=== PATIENT | male | born 1995 | race Caucasian/White ===

== ENCOUNTER 2017-12-10 | Emergency (ER) | payer OTHER | END 2017-12-10 15:01 | disposition home or self-care (01) | DX: J93.81 Chronic pneumothorax (principal) ==

== ENCOUNTER 2017-12-11 | Emergency (ER) | payer OTHER | END 2017-12-11 12:32 | disposition home or self-care (01) | PROC: 0W9B00Z Drainage of Left Pleural Cavity with Drainage Device, Open Approach (ICD-10-PCS; principal; 2017-12-11) | DX: J93.83 Other pneumothorax (principal) ==

== ENCOUNTER → 2017-12-16 | Outpatient (CLI) | payer OTHER | LOC: FIMAGING 11:23 | PROVIDERS: ATTEND Surgery | DX: J93.11 Primary spontaneous pneumothorax (principal) ==

== ENCOUNTER 2018-03-10 07:11 | Inpatient (IN) | payer OTHER ==
[2018-03-10] MEDS ORDERED: LR 1,000 ML IV ONE (07:43)
--- NOTE | 2018-03-10 08:11 | PDANEPAE ---
ANE Past Medical History - Cardiovascular History Hx Hypertension: No Hx Arrhythmias: No Hx Chest Pain: No Hx Coronary Artery / Peripheral Vascular Disease: No Hx CHF / Valvular Disease: No Hx Palpitations: No - Pulmonary History Hx COPD: No Hx Asthma/Reactive Airway Disease: No Hx Recent Upper Respiratory Infection: No Hx Oxygen in Use at Home: No Hx Sleep Apnea: No Sleep Apnea Screening Result - Last Documented: Negative Pulmonary History Comment: PNEUMOTHORAX SPONTANEOUS L LUNG X2 - Neurologic History Hx Cerebrovascular Accident: No Hx Seizures: No Hx Dementia: No - Endocrine History Hx Diabetes: No - Renal History Hx Renal Disorders: No - Liver History Hx Hepatic Disorders: No - Neurological & Psychiatric Hx Hx Neurological and Psychiatric Disorders: No - Cancer History Hx Cancer: No - Congenital Disorder History Hx Congenital Disorders: No - GI History Hx Gastrointestinal Disorders: No - Other Health History Other Health History: NEG - Chronic Pain History Chronic Pain: No - Surgical History Prior Surgeries: KNEE SCOPES L X2. CHEST TUBE X1 ANE Review of Systems Review of Systems: - Exercise capacity METS (RN): 4 METS ANE Patient History - Allergies Allergies/Adverse Reactions: No Known Allergies Allergy (Verified 03/10/18 08:23) - NPO status NPO Since - Liquids (Date): 03/09/18 NPO Since - Liquids (Time): 23:30 NPO Since - Solids (Date): 03/09/18 NPO Since - Solids (Time): 19:30 - Smoking Hx Smoking Status: Never smoked - Family Anes Hx Family Hx Anesthesia Complications: NEG ANE Labs/Vital Signs - Vital Signs Blood Pressure: 128/75 Heart Rate: 71 Respiratory Rate: 14 O2 Sat (%): 97 Height: 187.96 cm Weight: 74.843 kg
[2018-03-10] MEDS ORDERED: fentaNYL 100 MCG/2 ML INJ ONE ×3 (08:35→10:33)
[2018-03-10] MEDS ORDERED: MIDAZOLAM 2 MG/2 ML VIAL ONE (08:35)
[2018-03-10] MEDS ORDERED: BUPIVACAINE/EPI 0.5% 30 ML SDV ONE (08:44)
[2018-03-10] MEDS ORDERED: TALC 3 GM INTRAPLEURAL VIAL ONE (08:46)
--- NOTE | 2018-03-10 08:46 | PDHPUP ---
History & Physical Update H&P update statement: This history and physical update is based on an assessment of the patient which was completed after admission or registration (within 24 hours), but prior to the surgery/procedure. H&P update: H&P reviewed & patient examined, no change in patient's condition since H&P completed
[2018-03-10] MEDS ORDERED: PHENYLEPHRINE HCL 100 MCG/ML SYR ONE ×2 (09:33→10:06)
[2018-03-10] MEDS ORDERED: PHENYLEPHRINE HCL 100 MCG/ML SYR IVP PRN (09:36)
[2018-03-10] MEDS ORDERED: METOCLOPRAMIDE 10 MG/2 ML VIAL IVP PRN ×2 (09:36→10:32)
[2018-03-10] MEDS ORDERED: MEPERIDINE 25 MG/0.5 ML AMP IVP PRN (09:36)
[2018-03-10] MEDS ORDERED: LR 500 ML IV PRN (09:36)
[2018-03-10] MEDS ORDERED: ONDANSETRON 4 MG/2 ML VIAL IVP PRN ×2 (09:36→10:32)
[2018-03-10] MEDS ORDERED: NALOXONE HCL 0.4 MG/ML INJ IVP PRN (09:36)
--- NOTE | 2018-03-10 09:36 | PDANEPAE ---
ANE Past Medical History - Cardiovascular History Hx Hypertension: No Hx Arrhythmias: No Hx Chest Pain: No Hx Coronary Artery / Peripheral Vascular Disease: No Hx CHF / Valvular Disease: No Hx Palpitations: No - Pulmonary History Hx COPD: No Hx Asthma/Reactive Airway Disease: No Hx Recent Upper Respiratory Infection: No Hx Oxygen in Use at Home: No Hx Sleep Apnea: No Sleep Apnea Screening Result - Last Documented: Negative Pulmonary History Comment: PNEUMOTHORAX SPONTANEOUS L LUNG X2 - Neurologic History Hx Cerebrovascular Accident: No Hx Seizures: No Hx Dementia: No - Endocrine History Hx Diabetes: No - Renal History Hx Renal Disorders: No - Liver History Hx Hepatic Disorders: No - Neurological & Psychiatric Hx Hx Neurological and Psychiatric Disorders: No - Cancer History Hx Cancer: No - Congenital Disorder History Hx Congenital Disorders: No - GI History Hx Gastrointestinal Disorders: No - Other Health History Other Health History: NEG - Chronic Pain History Chronic Pain: No - Surgical History Prior Surgeries: KNEE SCOPES L X2. CHEST TUBE X1 ANE Review of Systems Review of Systems: - Exercise capacity METS (RN): 4 METS ANE Patient History - Allergies Allergies/Adverse Reactions: No Known Allergies Allergy (Verified 03/10/18 08:23) - Home Medications Home Medications: Ibuprofen [Motrin (*)] 200 mg PO DAILY PRN 03/02/18 [Last Taken Unknown] - NPO status NPO Since - Liquids (Date): 03/09/18 NPO Since - Liquids (Time): 23:30 NPO Since - Solids (Date): 03/09/18 NPO Since - Solids (Time): 19:30 - Smoking Hx Smoking Status: Never smoked - Family Anes Hx Family Hx Anesthesia Complications: NEG ANE Labs/Vital Signs - Vital Signs Blood Pressure: 128/75 Heart Rate: 71 Respiratory Rate: 14 O2 Sat (%): 97 Height: 187.96 cm Weight: 74.843 kg ANE Physical Exam - Airway Neck exam: FROM Mallampati Score: Class 1 Mouth exam: normal dental/mouth exam - Pulmonary Pulmonary: no respiratory distress - Cardiovascular Cardiovascular: regular rate and rhythym - ASA Status ASA Status: II ANE Anesthesia Plan Anesthesia Plan: general endotracheal anesthesia
[2018-03-10] MEDS ORDERED: KETOROLAC 30 MG/1 ML SDV ONE (10:06)
[2018-03-10] MEDS ORDERED: SUGAMMADEX SODIUM 200 MG/2 ML VIAL IVP ONE (10:06)
--- NOTE | 2018-03-10 10:31 | POSTOPPROG ---
Post Op Note Date of Operation: 03/10/18 Surgeon: Jonny Pantoja [employer] Professor: Kathy Fernandes PA-C Anesthesia: GET(General Endotracheal) Pre-op Diagnosis: Left pneumothorax Post-op Diagnosis: Left pneumothorax Procedure: VATS left lung bleb resection and pleurodesis Findings: left apical blebs Inf/Abcess present in the surg proc area at time of surgery?: No EBL: Minimal Complications: no immediate Specimen(s): left upper lobe lung biopsy
[2018-03-10] MEDS ORDERED: ZOLPIDEM TARTRATE 5 MG TAB PO PRN (10:32)
[2018-03-10] MEDS ORDERED: HYDROmorphONE/DILAUDID 1 MG/ML INJ IVP PRN (10:32)
[2018-03-10] MEDS ORDERED: HYDROmorphONE/DILAUDID 2 MG/ML INJ ONE (10:33)
[2018-03-10] MEDS: HYDROmorphONE/DILAUDID 2 MG/ML INJ IVP PRN ×4 (10:35→11:05)
[2018-03-10] MEDS: fentaNYL 100 MCG/2 ML INJ IVP PRN ×2 (10:35→10:42)
[2018-03-10] MEDS ORDERED: HYDROCODONE/APAP 5/325 TAB ONE (11:15)
[2018-03-10] MEDS: HYDROCODONE/APAP 5/325 TAB PO PRN ×2 (11:16→14:26)
--- NOTE | 2018-03-10 11:45 | POSTANESTH ---
Post Anesthetic Evaluation Cardiovascular Status: Normal, Stable Respiratory Status: Normal, Stable Level of Consciousness/Mental Status: Can Participate in Eval Pain Control: Adequate, Prn Tx Ordered Nausea/Vomiting Control: Adequate, Prn Tx Ordered Complications Possibly Related to Anesthesia: None Noted
[2018-03-10] MEDS: KETOROLAC 15 MG/1 ML SDV IVP SCH ×2 (12:19→18:03)
--- NOTE | 2018-03-10 13:38 | GOP ---
DATE OF OPERATION: 02/28/2018 SURGEON: Jonny Pantoja MD [employer] [employer] APPLICATOR: Kathy Fernandes PA-C. ANESTHESIA: General. ANESTHESIOLOGIST: Garrison Cerda MD. PREOPERATIVE DIAGNOSIS: Recurrent spontaneous pneumothorax. POSTOPERATIVE DIAGNOSIS: Recurrent spontaneous pneumothorax. PROCEDURE PERFORMED: 1. Left video-assisted thorascopic apical lung resection with talc and mechanical pleurodesis. 2. Multilevel intercostal nerve block. FINDINGS: Isolated left upper lobe apical bleb. INDICATIONS: 22-year-old male with a history of recurrent spontaneous left pneumothorax. He is undergoing a thoracoscopy at this time with bleb resection. Risks and benefits were explained of bleeding, infection, open conversion, recurrence. All questions were answered. He desires to proceed. A surgical training specialist is standard and necessary and customary for the safe performance of this. DESCRIPTION OF PROCEDURE: General anesthesia was induced via double-lumen endotracheal tube. The patient was placed in a right lateral decubitus position being careful to pad all pressure points. Three thoracoscopic ports were inserted in the left chest and the lung was deflated. An obvious section of bleb formation was noted within the apical aspect of the left upper lobe. The remaining upper lobe as well as lower and lingular segments appeared normal. The upper lobe was grasped with a clamp and a portion of the upper lobe excised using endoscopic YOBANY stapler containing the obvious blebs. The specimen was brought through the lower most trocar site intact. The chest was abraded with a Bovie scratch pad. Talc was insufflated under direct visualization across all parietal and pleural surfaces. A 24-Egyptian chest tube was placed through the lower-most trocar site. The lung was re-expanded under direct visualization. The wounds were closed in layers with absorbable suture followed by Dermabond. A multilevel intercostal nerve block was placed along the spine with 0.25% Marcaine with epinephrine. The patient was extubated in the operating room and taken to recovery uneventfully. /[id number]/MODL MTDD
--- NOTE | 2018-03-10 14:54 | PDMN ---
Medical Necessity Medical necessity: Pt meets inpt criteria per MD order and [facility] S-[id number], Thoracotomy with Biopsy or Miscellaneous Procedures by Video-Assisted Thoracic Surgery, Medicare inpt only list. 22 y/o w/recurrent spontaneous pneumothorax s/ p VATS left lung bleb resection and pleurodesis.
[2018-03-10] MEDS: ACETAMINOPHEN 325 MG TAB PO PRN (22:09)
[2018-03-11] MEDS: KETOROLAC 15 MG/1 ML SDV IVP SCH ×5 (00:39→23:25)
[2018-03-11] MEDS: ACETAMINOPHEN 325 MG TAB PO PRN ×4 (06:09→20:26)
--- NOTE | 2018-03-11 09:02 | SOAPPROG ---
SOAP Progress Note Assessment/Plan: Assessment:no overnight events. min pain. avss. comfortable. lungs clear. heart reg. chest tube dynamic - very small air leak. cxr -ptx. pod#1 s/p l vats - will keep in hospital overnight - hopeful tube removal tomorrow. can be discharged tomorrow with heimlich valve if not ready yet. Plan: 03/11/18 09:00 Objective: Vital Signs Temp Pulse Resp BP Pulse Ox 36.9 C 64 16 108/57 L 94 03/11/18 07:35 03/11/18 07:35 03/11/18 07:35 03/11/18 07:35 03/11/18 07:35 03/10/18 03/11/18 03/12/18 05:59 05:59 05:59 Intake Total 2520 Output Total 500 Balance 2019 ICD10 Worksheet Patient Problems: Problems Problem Status Onset Pneumothorax Acute - ICD10 Problem Qualifiers (1) Pneumothorax
--- NOTE | 2018-03-11 15:50 | ASMTCMCOM ---
CM Note CM Note Notes: Reviewed chart. Pt admitted for a spontaneous pneumothorax. No remarkable history. CT in place. Per MD notes, CT to likely be removed on Tuesday03/12/18. Pt's parents at bedside. Anticipate pt will likely discharge home with family support when medically stable. CM will continue to follow for any potential needs. Discharge Plan: Home independently Date Signed: 03/11/2018 03:48 PM Electronically Signed By:Debi Andres RN
[2018-03-12] MEDS: KETOROLAC 15 MG/1 ML SDV IVP SCH (05:19)
[2018-03-12] MEDS: ACETAMINOPHEN 325 MG TAB PO PRN (05:53)
--- NOTE | 2018-03-12 09:52 | SOAPPROG ---
SOAP Progress Note Assessment/Plan: Assessment:feeling good. no c/o. pain controlled. avss. CT 150 overnight. heart reg. lungs clear. CT dynamic - no leak. CXR - unexpanded left upper lobe (on reassessment of yesterdays film, unchanged). will plan to dc home today with pleurovac until pleural space completely filled. patient and mother both in agreement. reviewed pleurovac and heimlich valve instructions. will see back in office this week for hopeful removal. Plan: 03/11/18 09:00 03/12/18 09:50 Objective: Vital Signs Temp Pulse Resp BP Pulse Ox 36.6 C 73 14 130/78 H 96 03/12/18 08:00 03/12/18 08:00 03/12/18 08:00 03/12/18 08:00 03/12/18 08:00 03/11/18 03/12/18 03/13/18 05:59 05:59 05:59 Intake Total 2520 Output Total 195 1072 Balance 2020 -107 ICD10 Worksheet Patient Problems: Problems Problem Status Onset Pneumothorax Acute - ICD10 Problem Qualifiers (1) Pneumothorax
--- NOTE | 2018-03-12 11:44 | GDS ---
REASON FOR ADMISSION: Recurrent spontaneous left pneumothorax. HOSPITAL COURSE: A 22-year-old healthy male ultimately admitted with a history of recurrent spontane ous left pneumothorax. He underwent an uncomplicated left video-assisted thoracoscopic apical lung r esection with talc pleurodesis. He had an unremarkable postoperative course. He was discharged home on postop day #2 with his chest tube in place given a small non-expanded upper lobe. No further air leak was noted. He will be seen in followup later this week after further lung reexpansion for tube removal. Full instructions were explained to the patient and Mother prior to leaving. Prescription s for [place] were offered. /[id number]/MODL
--- NOTE | 2018-03-12 16:16 | ASMTLACE ---
NILDA Length of stay for Answers: 2 days current admission Acuity / Level of Answers: Yes Care: Did the patient have an inpatient admission? # of Emergency department Answers: 1-2 visits in the last 6 months Score: 6 Date Signed: 03/12/2018 04:16 PM Electronically Signed By:Debi Andres RN
--- NOTE | 2018-03-12 16:22 | ASDISCHSUM ---
Discharge Information Plan Status:Home with No Needs Medically Cleared to Leave:03/11/2018 Discharge Date:03/12/2018 10:37 AM CM D/C Disposition:Home, Routine, Self-Care ADT D/C Disposition:Home, Routine, Self-Care Projected Discharge Date:03/12/2018 10:37 AM Transportation at D/C:Family Discharge Delay Reason: Follow-Up Date:03/12/2018 10:37 AM Discharge Slot:2 - 12:01 pm - 18:00 pm Final Diagnosis:Spontaneous pneumothorax Placement Information Patient Contact Information Contact Name:ALESIA Relationship:Mother Address: Work Phone: City: [facility] Phone: State/[employer] Code: Email: Financial Information Financial Class:HMO and PPO Plans Primary Plan Desc:REWIN PPO POS HMO SIG ADM Primary Plan Number:[id number] Secondary Plan Desc: Secondary Plan Number: Assessment Information LACE LACE Length of stay for Answers: 2 days current admission Acuity / Level of Answers: Yes Care: Did the patient have an inpatient admission? # of Emergency department Answers: 1-2 visits in the last 6 months Score: 6 Date Signed: 03/12/2018 04:16 PM Electronically Signed By:Debi Andres RN [facility] Progress Note CM Note CM Note Notes: Reviewed chart. Pt admitted for a spontaneous pneumothorax. No remarkable history. CT in place. Per MD notes, CT to likely be removed on Tuesday03/12/18. Pt's parents at bedside. Anticipate pt will likely discharge home with family support when medically stable. CM will continue to follow for any potential needs. Discharge Plan: Home independently Date Signed: 03/11/2018 03:48 PM Electronically Signed By:Debi Andres RN Case Management Discharge Plan Note Case Management Discharge Discharge Order Complete? Answers: Yes Patient to Obtain Answers: Independently Medications Transportation Arranged Answers: Family/Friends Transport will Pick (Date 03/12/2018 12:00 AM & Time) EMTALA Complete Answers: No Notes: N/A Case Management Transport Answers: No Notes: N/A Form Complete Faxed Final Orders Answers: No Notes: N/A Agency/Facility Transfer Answers: No Notes: N/A Report Printed & Faxed to Receiving Agency Family Notified Answers: Yes Notes: Parents at bedside Discharge Comments Notes: Reviewed chart regarding discharge plan of care, pt's progress. Per MD notes, pt to discharge home independently with family support and no identified needs. Pt left with a small chest tube in place. No HHC ordered or requested. Pt to follow up later this week as directed. No IM/ROSAS forms signed, not applicable. CM available for any further issues or concerns. Discharge Plan: Home independently Date Signed: 03/12/2018 04:21 PM Electronically Signed By:Debi Andres RN Intervention Information
[2018-03-15 20:49] VITALS: BP 128/75
== END 2018-03-12 10:37 | disposition home or self-care (01) | DRG 168 ==
LOC: F3E 07:11
PROVIDERS: ADMIT Surgery; ATTEND Surgery
PROC: 0BBG4ZX Excision of Left Upper Lung Lobe, Percutaneous Endoscopic Approach, Diagnostic (ICD-10-PCS; principal; 2018-03-10 08:45)
PROC: 3E0T3BZ Introduction of Anesthetic Agent into Peripheral Nerves and Plexi, Percutaneous Approach (ICD-10-PCS; principal; 2018-03-10 08:45)
PROC: 3E0L3GC Introduction of Other Therapeutic Substance into Pleural Cavity, Percutaneous Approach (ICD-10-PCS; principal; 2018-03-10 08:45)
PROC: 0W9B40Z Drainage of Left Pleural Cavity with Drainage Device, Percutaneous Endoscopic Approach (ICD-10-PCS; principal; 2018-03-10 08:45)
DX: J93.11 Primary spontaneous pneumothorax (principal)
CPT/HCPCS: J1170; J1885; J2250; J2370; J3010

== ENCOUNTER → 2018-03-21 | Outpatient (CLI) | payer OTHER | LOC: FIMAGING 07:25 | PROVIDERS: ATTEND Surgery | DX: J93.11 Primary spontaneous pneumothorax (principal) ==

== ENCOUNTER → 2018-03-27 | Outpatient (CLI) | payer OTHER | LOC: FIMAGING 13:03 | PROVIDERS: ATTEND Surgery | DX: J93.11 Primary spontaneous pneumothorax (principal) ==